=== PATIENT | female | born 1995 | race Caucasian/White ===

== ENCOUNTER 2018-11-03 11:37 | Emergency (ER) | payer BC ==
[2018-11-03] MEDS ORDERED: FAMOTIDINE 20 MG/2 ML SDV IVP ONE (12:26)
[2018-11-03] MEDS ORDERED: fentaNYL 100 MCG/2 ML INJ IVP ONE (12:26)
[2018-11-03 12:34] LABS: PLATELET COUNT 227 10^3/uL (150-400)
--- NOTE | 2018-11-03 13:35 | EDPHY ---
General - History Smoking Status: Never smoked Time Seen by Provider: 11/03/18 12:03 Narrative: CLINICAL IMPRESSION: Epigastric and left upper quadrant abdominal pain ASSESSMENT/PLAN: 23-year-old otherwise healthy female presents to the emergency department with rather sudden onset epigastric and left upper quadrant abdominal pain earlier today while sitting in class. No associated nausea, vomiting, chest pain, palpitations, pleuritic discomfort although she does report some shortness of breath. No radiating pain to the back, flank, or lower abdomen. No UTI symptoms. Urine is not suggestive of infectious process or pyelonephritis. Patient denies and test is negative. Remainder of lab work is also reassuring with no leukocytosis, renal insufficiency, transaminitis, pancreatitis, metabolic disturbance or electrolyte imbalance. X-ray of the chest and abdomen read by Radiology with no acute abnormality identified. Pain improved with a single dose of fentanyl and famotidine. EKG interpreted by Dr. Adames. Troponin negative. No evidence of pericarditis. Discussed with Dr. Adames. GI cocktail tried and patient felt improved pain was stating she felt hungry. This may be a early presentation of gastritis, gastric or duodenal ulcer. We discussed outpatient [id number] PPI therapy and PCP recheck in 24 hr. Low threshold for return to ED sooner for worsening symptoms as outlined in person and discharge papers. DIFFERENTIAL DX: Abdominal pain includes but not limited to urinary tract infection, pyelonephritis, infection, ectopic , pancreatitis, splenomegaly, mononucleosis, salpingitis, TOA, ovarian torsion, ovarian cyst, endometriosis, uterine fibroids, acute appendicitis, acute diverticulitis, small-bowel obstruction, constipation ED PROCEDURES: See lab and/or imaging results below ED COURSE: 1:20 p.m.: Patient reassessed after IV analgesics. All lab results and x-rays are back. No evidence of leukocytosis, pancreatitis, electrolyte imbalance, metabolic disturbance. Chest and abdominal x-rays are normal. Troponin negative. EKG reviewed with Dr. Adames. Case reviewed with ED attending who will also see and examine patient. Case discussed with Dr. Adames. He has recommended GI cocktail. 2:00 p.m.: Patient reassessed after GI cocktail, feeling much better. Reports that she now feels hungry. Still with mild tenderness to palpation of left upper and left lower quadrant abdomen. No focal peritoneal findings. Low clinical suspicion at this time for acute surgical process and CT scan was deferred. Encouraged PCP recheck in 24 hr. CHIEF COMPLAINT: Epigastric and left upper quadrant abdominal pain HPI: This is a 23-year-old otherwise healthy female who presents to the emergency department with rather sudden onset epigastric and left upper quadrant abdominal pain that began earlier today while she was sitting in class. Pain persisted through class time and she decided to come to the emergency department. No associated nausea, vomiting, constipation, diarrhea. No recent URI symptoms, sore throat, or swollen lymph nodes. No abdominal wall trauma. No fever or chills. She reports pain is worse with sitting up and taking deep breaths. She reports no chest pain. No recent long air or car travel. No GERD symptoms. PAST MEDICAL HISTORY: None reported See nurse/triage notes for additional history if applicable Pertinent Past Surgical History: None reported Family History: Noncontributory Social History: [employer] student, nonsmoker does not drink alcohol, otherwise healthy REVIEW OF SYSTEMS: All other systems negative Constitutional: No fever, no chills, appetite change. Eyes: No discharge, vision change ENT: No sore throat, congestion, ear pain. Cardiovascular: No chest pain, no palpitations. Respiratory: No cough, no shortness of breath. Gastrointestinal: Positive for epigastric and left upper quadrant abdominal pain, no vomiting, diarrhea.] Genitourinary: No hematuria, dysuria, flank pain, pelvic pain Musculoskeletal: No back pain, joint swelling, joint pain, myalgias. Skin: No rashes, color change. Neurological: No headache, dizziness, weakness. PHYSICAL EXAM: General Appearance: Alert, oriented, appropriate, BMI of 25, cooperative, lying comfortably on the bed although uncomfortable at times and tearful, well hydrated, non-toxic appearing, tachycardic, afebrile no hypoxia. HEENT: Oropharynx clear is no erythema or exudates, no tonsillar hypertrophy or asymmetry. Dentition without abnormality. Respiratory: There are no retractions, lungs are clear to auscultation. Cardiac: Regular rate and rhythm, no murmurs or gallops. Gastrointestinal: Abdomen is soft, reproducible tenderness to epigastrium, left upper quadrant, left lateral abdomen into left lower quadrant. bowel sounds normal, no masses/hernia, no rigidity, guarding or focal peritoneal findings. Neurological: [ Alert and oriented x 3 Skin: Warm, dry, no rashes, no nodules on palpation. Musculoskeletal: Extremities are symmetrical, full range of motion, no tenderness, deformity, swelling, or erythema. No asymmetric calf pain, swelling or erythema Psychiatric: Patient is oriented X 3, there is no agitation. MEDICAL DECISION MAKING: Patient was seen independently. Secondary supervising physician at time of evaluation was Dr. Adames. Diagnosis: Epigastric and left upper quadrant abdominal pain . New, requires workup Summary: See Assessment and Plan for summary of ED visit Clinical lab tests: ordered / reviewed. Independent visualization of images, tracing, or specimens: Yes. Decision to obtain medical records or history from someone other than the patient: None Review / Summarize previous medical records: None available Discussed patient with another provider: Dr. Adames Patient Progress: Improved, stable for discharge. (Constantine Garay) Medical Decision Making: I did not see this patient while she was in the emergency department. However her care was discussed with the PA while the patient was in the department. I agree with treatment plan and management (Jamal Adames) - Objective Vital Signs: Initial Vital Signs Temperature (C) 36.7 C 11/03/18 11:38 Heart Rate 104 H 11/03/18 11:38 Respiratory Rate 18 11/03/18 11:38 Blood Pressure 136/88 H 11/03/18 11:38 O2 Sat (%) 94 11/03/18 11:38 O2 Delivery Mode Room Air Allergies/Adverse Reactions: No Known Allergies Allergy (Unverified 11/03/18 11:42) Home Medications: Medication Instructions Recorded NK [No Known Home Meds] 11/03/18 Laboratory Results: Laboratory Results 11/03/18 12:00 11/03/18 12:00 Medications Given: Discontinued Medications Al Hydroxide/Mg Hydroxide (Maalox Susp) 30 ml PO ONCE ONE Stop: 11/03/18 13:40 Last Admin: 11/03/18 13:44 Dose: 30 ml Famotidine (Pepcid) 20 mg IVP EDNOW ONE Stop: 11/03/18 12:27 Last Admin: 11/03/18 12:37 Dose: 20 mg Fentanyl (Sublimaze) 50 mcg IVP EDNOW ONE Stop: 11/03/18 12:27 Last Admin: 11/03/18 12:37 Dose: 50 mcg Hyoscyamine Sulfate (Levsin, Hyomax-Sl) 0.25 mg PO ONCE ONE Stop: 11/03/18 13:40 Last Admin: 11/03/18 13:44 Dose: 0.25 mg Lidocaine (Lidocaine 2% Viscous) 15 ml PO ONCE ONE Stop: 11/03/18 13:40 Last Admin: 11/03/18 13:44 Dose: 15 ml Point of Care Test Results: Chemistry 11/03/18 12:35 POC Troponin I 0.00 ng/mL ng/mL (0.00-0.08) Departure - Departure Disposition: Home, Routine, Self-Care Clinical Impression: Left upper quadrant abdominal pain of unknown etiology, Epigastric abdominal pain Condition: Good Instructions: Abdominal Pain (ED) Additional Instructions: DISCHARGE INSTRUCTIONS FROM YOUR DOCTOR Thank you for visiting our emergency department today. You were treated by a physician campaign assistant today and your case was reviewed with our ED Attending physician. Please keep in mind that discharge from the emergency department does not mean that there is nothing wrong - it simply means that we have not identified an emergency condition that requires further evaluation or treatment in the hospital. You should always plan to follow up with primary care for re- evaluation of your condition in the next 2-3 days. If you have been referred to a specialist, please call as soon as possible (today or tomorrow) to schedule your follow up appointment at the appropriate time. DIAGNOSTIC EVALUATION IN THE EMERGENCY DEPARTMENT TODAY INCLUDED LAB WORK, CBC , METABOLIC PANEL, D-DIMER, PANCREATIC ENZYMES, CARDIAC ENZYMES, EKG, CHEST X- RAY, AND ABDOMINAL X-RAYS. YOUR ENTIRE EMERGENCY DEPARTMENT WORKUP WAS VERY REASSURING WITH NO ABNORMAL LAB VALUES DETECTED. URINE STUDIES WERE NORMAL. X- RAYS WERE READ BY THE RADIOLOGIST SHOWING NO ABNORMALITY. WE RECOMMEND CONSIDERING A TRIAL OF EITHER PEPCID AC OR PRILOSEC. STICK TO A BLAND DIET AND AVOID FOODS THAT EXACERBATE ACID REFLUX. FOLLOW UP WITH A PRIMARY CARE DOCTOR IN 24 HR TO RECHECK. RETURN TO THE EMERGENCY DEPARTMENT IMMEDIATELY FOR WORSENING PAIN, NAUSEA OR VOMITING, DEVELOPMENT OF FEVER OR CHILLS, CHEST PAIN, WORSENING SHORTNESS OF BREATH, OR ANY OTHER CONCERNS. People present with illnesses and injuries in different ways, and it is always possible that we have missed something. You may always return for re-evaluation if symptoms worsen or if they are not improving or if you develop new/different symptoms. Again, thank you for choosing our emergency department. We hope that you feel better. Referrals: ARCELIA SINGH MD [Other] - 1-2 days without fail Stand Alone Forms: School Excuse
[2018-11-03] MEDS ORDERED: HYOSCYAMINE SULFATE 0.125 MG TAB PO ONE (13:39)
[2018-11-03] MEDS ORDERED: MAG HYDROX/AL HYDROX/SIMETH 30 ML UDCUP PO ONE (13:39)
[2018-11-03] MEDS ORDERED: LIDOCAINE 2% VISCOUS 15 ML UDCUP PO ONE (13:39)
--- NOTE | 2018-11-03 14:02 | CPEKG ---
Test Reason : OPEN Blood Pressure : / mmHG Vent. Rate : 079 BPM Atrial Rate : 080 BPM P-R Int : 152 ms QRS Dur : 084 ms QT Int : 390 ms P-R-T Axes : 039 032 010 degrees QTc Int : 448 ms Sinus rhythm Borderline T abnormalities, anterior leads Confirmed by Jamal Adames ([id number]) on 11/03/2018 2:02:12 PM Referred By: Jamal Adames Confirmed By:Jamal Adames
[2018-11-03 14:51] VITALS: BP 98/64
== END 2018-11-03 15:02 | disposition home or self-care (01) ==
DX: R10.13 Epigastric pain (principal); R10.12 Left upper quadrant pain
CPT/HCPCS: 84484-ER; 96374; J3010